=== PATIENT | female | born 1940 | race Caucasian/White ===

== ENCOUNTER 2017-01-27 19:34 | Inpatient (IN) | payer BC ==
--- NOTE | ~2017-01-27 | HP ---
History And Physical [facility] [address] [place]. [address] NAME: SANTA ALMAZAN : 42 STATUS : ADM IN PAT#: [id number] AGE: 76 ADM/REG DATE : 01/27/17 MR#: [id number] REPORT SERV DATE: 01/28/17 DICTATED BY: FAHEEM BAUTISTA DATE: 01/27/17 REPORT STATUS : Draft TRANSCRIBED BY: MODRaysa DATE: 01/27/17 DATE OF ADMISSION: 01/27/2017 CHIEF COMPLAINT: Confusion. HISTORY OF PRESENT ILLNESS: This is a 76-year-old female with past medical history of recent CVA in the right thalamus in December 2016. Also, a history of a left subclavian artery stenosis, being followed by Vascular Surgery; history of encephalopathy; and AVN in the past. Recently, discharged from the hospital in December 2016, seen at that time by Dr. Wilson. The patient presents back to [facility] ER for worsening encephalopathy and according to family, some signs of left-sided weakness. According to the family, who is the son and [id number], the patient developed some confusion on Thursday, approximately 5 days ago, and also family noticed that it was hard for the patient to hold things in her left hand including her walker. EMS was called at that time; however, the patient had refused EMS, reported per family. The patient states that she knows that she has been confused over the past few days, but she states that she is better now. The patient was seen in the ER by Dr. Vasquez for her findings, and a CT of the brain was ordered, which revealed some moderate large area of encephalomalacia in the right occipital lobe, much larger than prior MRI in December 2016, with concerns of possible acute superimposed chronic infarct; therefore, MRI of the brain was ordered by Dr. Vasquez, but findings are still pending. Also, Neurology with Dr. Jacome was consulted and informed of the patient, and he will follow up with the MRI. According to the family, the patient was taken off her Plavix approximately three weeks ago due to severe anemia with a hemoglobin of around 7. The last hemoglobin from her last discharge in December was at 11.4 and currently at 8.0. The patient has known history of AVMs. She denies any melena or hematochezia and currently has been placed on iron orally by her primary care. The patient initially refused admission, but then later consented. The patient denies any shortness of breath. No chest pain. She states that her left side is much stronger now. REVIEW OF SYSTEMS: Please refer to HPI. PAST MEDICAL HISTORY: Acute CVA of the right thalamus, encephalopathy, left subclavian artery stenoses, bipolar disorder with history psychoses, hypertension, hyperlipidemia, AVM, iron-deficiency anemia, GERD, depression, and breast cancer status post chemo and radiation. PAST SURGICAL HISTORY: Hysterectomy, bilateral breast implants, modified radical mastectomy for breast cancer, tubal ligation, back surgery, ORIF of the right shoulder, knee arthroplasty, and back surgery. FAMILY HISTORY: Hypertension and CVA. SOCIAL HISTORY: Quit tobacco abuse over 5 years ago according to the patient. No alcohol or illicit drugs. Lives at a [facility] center. Uses a walker. History And Physical [address] [address] NAME: SANTA ALMAZAN : 42 STATUS : ADM IN [facility]#: [id number] AGE: 76 ADM/REG DATE : 01/27/17 MR#: [id number] REPORT SERV DATE: 01/28/17 DICTATED BY: FAHEEM BAUTISTA DATE: 01/27/17 REPORT STATUS : Draft TRANSCRIBED BY: CAITLYN DATE: 01/27/17 HOME MEDICATIONS: Allopurinol 100 mg p.o. b.i.d.; Artificial Tears; aspirin p.o. b.i.d.; Benadryl p.r.n.; Pepcid 20 mg p.o. b.i.d.; iron polysaccharide 200 mg p.o. with breakfast and supper; Flonase 2 sprays b.i.d.; Neurontin 300 mg p.o. t.i.d. p.r.n.; Tradjenta 5 mg p.o. q.a.m.; losartan 100 mg p.o. at bedtime; multivitamin; Inderal 80 mg p.o. four times a day; Seroquel 25 mg p.o. at bedtime, however, the patient refuses to take this medication. PHYSICAL EXAMINATION: VITAL SIGNS: Temperature is 98.6, initial blood pressure was 213/93, with a pulse of 79, respiratory rate 16, saturating 99% on room air. GENERAL: Currently, the patient is alert and oriented x3. HEENT: Pupils are equal, round, and reactive to light. Extraocular muscles are intact. Moist mucous membranes. CARDIOVASCULAR: S1, S2. Regular rate and rhythm. No appreciated rubs or gallops. No JVD. NECK: Possible bruit in the right carotid or possible trajection from known left subclavian stenoses. RESPIRATORY: Clear to auscultation bilaterally. No wheezes or crackles. ABDOMEN: Positive bowel sounds. Soft, nontender. No rebound. No fluid wave. No distention. EXTREMITIES: 2+ pulses bilaterally. NEURO: Cranial nerves II through XII grossly intact. 4/5 upper and lower strength bilaterally. No appreciated deficit currently. No drift. SKIN: No appreciated new rashes. LABORATORY DATA: Sodium 140, potassium 3.6, chloride of 103, bicarbonate of 23, BUN of 24, creatinine of 1.09, with a glucose of 210, calcium of 8.9, albumin of 3.2, total bilirubin of 0.2, alkaline phosphatase of 103, ALT of 24, AST of 16, troponin less than 0.02. White count of 10 with a hemoglobin of 8.0, platelet count 591. INR of 1. EKG: Normal sinus rhythm, no ST elevation. IMAGING: CT of the brain without contrast with a moderate large area of encephalomalacia with medial right occipital lobe with effacement of overlying sulci much larger than on prior MRI of December 2016 of indeterminate age. May represent acute superimposed on chronic infarct. Very small 2-mm old infarct in the right thalamus. Chronic right sphenoid sinus disease. Chest x-ray: No acute infiltrate per my interpretation. ASSESSMENT AND PLAN: 1. Acute recurrent cerebrovascular accident. 2. Hypertensive urgency. 3. Encephalopathy. 4. Anemia with history of iron deficiency anemia/arteriovenous malformations. 5. History of peripheral vascular disease. The patient will be admitted to Dr. Joyce. Dr. Jacome, the neurologist, already has been contacted and consulted through the ER and he is aware of the patient, will follow up with History And Physical [address] [address] NAME: SANTA ALMAZAN : 42 STATUS : ADM IN [facility]#: [id number] AGE: 76 ADM/REG DATE : 01/27/17 MR#: [id number] REPORT SERV DATE: 01/28/17 DICTATED BY: FAHEEM BAUTISTA DATE: 01/27/17 REPORT STATUS : Draft TRANSCRIBED BY: CAITLYN DATE: 01/27/17 the MRI, awaiting pending results. Considering the patient's findings occurred 5 days ago, the patient is out of tPA window. Also, due to the patient's anemia, we will check a stool Hemoccult. She has known AVMs, not a candidate for Plavix at this time due to worsening anemia secondary to history of AVMs. We will follow up with a fasting lipid panel as well as Neurology assessment with neuro checks, and also we will await Neurology evaluation and further recommendations. [facility]/CAITLYN Faheem Bautista M.D. / [id number] CC: Jia Davis D.O. Abdul M.W. Eletr, M.D.
--- NOTE | ~2017-01-27 | DS ---
Discharge Summary [facility] [address] [place]. [address] NAME: SANTA ALMAZAN : 42 STATUS : DIS IN PAT#: [id number] AGE: 76 ADM/REG DATE : 01/27/17 MR#: [id number] REPORT SERV DATE: 02/06/17 DICTATED BY: SHAZIA MAGANA DATE: 02/05/17 REPORT STATUS : Draft TRANSCRIBED BY: MODL DATE: 02/05/17 ADMISSION DATE: 01/27/2017 DISCHARGE DATE: 02/05/2017 CONSULTANTS: Dr. Becerril, Neurology; Dr. Feliciano Muniz, GI. DISCHARGE DIAGNOSES: 1. Acute ischemic stroke, right occipital and right temporal. 2. Recent acute ischemic stroke, right occipital and right thalamus, December 2016. 3. 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 4. Acute fungal esophagitis. 5. Acute blood loss anemia. 6. Bipolar disorder with previous psychosis and insomnia. 7. Hypertension. 8. History of breast cancer, resected in 1978. 9. Stage 3 chronic kidney disease. 10.Diabetes mellitus type 2 with A1c 7.4%. 11.History of previous hepatitis. 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 HISTORY: This patient had been hospitalized here 12/11/2016 through 12/16/2016 with an acute ischemic stroke involving the right occipital and right thalamic area. She, at that time, was found to have some subclavian artery stenosis and talked to Dr. David Galindo of Vascular, saw her and felt she had no symptoms from it and he would follow up as an outpatient. At that time, she was also seen by Dr. Jg Andrews of Psychiatry and he felt she had bipolar disorder type 2 and stopped her Prozac and added Seroquel and recommended longitudinal followup with Psychiatry as an outpatient. The patient presented to the emergency room at [facility] with confusion according the family, some worsening of left-sided weakness where it was difficult for her to hold things in her left hand and difficulty use her walker. The patient underwent imaging in the emergency room including CT scan of the brain without contrast, which revealed moderately large area of encephalomalacia medial right occipital lobe much larger than the infarct on the prior MRI of 12/12/2016, very small 2 mm old right thalamic infarct, mild atrophy and moderate deep white matter changes and chronic right sphenoid sinus disease. MRI of the brain in the ER revealed moderately large acute ischemic infarct including a large portion of the inferior vascular distribution of the right posterior cerebral artery including the right medial temporal lobe, medial right occipital lobe, but sparing the more superior portion of the right occipital lobe. The area of acute infarct showed marked progression from the small area of acute infarct 12/12/2016. There were subtle areas of persistent minor cortical hemorrhagic change of the inferior right occipital lobe. There was also suspected acute progression of previously small acute right thalamic stroke, previously 2.2 to 3 mm, now 7 mm, in a pattern consistent with acute ischemic infarct. She was referred to our team for inpatient care and the on-call neurologist, Dr. Louise Ridley [address] [address] NAME: SANTA ALMAZAN : 42 STATUS : DIS IN PAT#: [id number] AGE: 76 ADM/REG DATE : 01/27/17 MR#: [id number] REPORT SERV DATE: 02/06/17 DICTATED BY: SHAZIA MAGANA DATE: 02/05/17 REPORT STATUS : Draft TRANSCRIBED BY: CAITLYN DATE: 02/05/17 Naa, reportedly was involved and evaluating the patient initially. As part of the history obtained on admission included that the patient, per her family, had stopped taking with her Plavix because of anemia with hemoglobin around 7 whereas her previous hemoglobin was around 11.4. She was evaluated for this during this current hospitalization as well. Neurology, Dr. Becerril, and nurse practitioner, Nargis Granados, consulted and recommended that the patient no longer drive because she has a significant left-sided homonymous hemianopsia. They recommended that she be on aspirin and be on Plavix and Lipitor. Because of her significant drop in her hemoglobin, she was seen by GI, Dr. Muniz, and during this hospitalization, it was recommended for EGD and colonoscopy. Initially, she was reluctant to take the preparation and this delayed her endoscopy evaluations considerably, but finally, she agreed to it. On 02/03/2017, she had an EGD showing esophageal candidiasis in the upper third of the esophagus. Brushings and yeast. She had two small AVMs bleeding in the second portion, they were treated with argon argon plasma laser. Small hiatal hernia was noted. She underwent colonoscopy on the same day showing four nonbleeding AV malformations, treated with fulguration, two polyps in the cecum, one in the ascending colon, and one in the transverse colon removed. Pathology revealed them to be fragments of tubular adenoma without high-grade dysplasia. The patient did have the evidence of the acute blood loss. Her hemoglobins here remained stable, and at discharge, her hemoglobin is 8. Her iron studies do reveal a low serum iron of 20, low percent iron saturation of 6, ferritin of 29, which is low considering the inflammatory states she is going through. Her folic acid level on 01/29/2017 was normal at 28.4, as was her B12 on 01/29/2017 at 779. The patient is tolerating oral iron. And she knows that her stools will turn dark color with this. She has been assessed by Physical therapy, Occupational therapy, and she is felt to need inpatient rehab. Case Management has been working with the patient and her family in this regard and those plans are hopefully completed today. The patient has been very cooperative through her time here. She is sleeping well. She works with therapy. She is cooperative with the staff. For her Naomi esophagitis, she will be on Diflucan for three weeks and HIV titer pending at this time. It is unlikely to be positive, but this should be followed up. GI felt that she should have her aspirin and Plavix held for a minimum of three days after her polypectomy and fulguration of her AV malformations. DISCHARGE MEDICATIONS: Will include, allopurinol 100 mg b.i.d., Lipitor 80 mg daily, BuSpar 5 mg b.i.d. which is new, vitamin D 5000 units daily which is new because her vitamin D level was 27, EzFe 200 mg b.i.d., Diflucan 100 mg daily through 02/24/2017, Flonase nasal spray two puffs each nostril twice a day, NovoLog level 1 insulin before meals and h.s., Cozaar 100 mg daily (at discharge, her creatinine is normal at 1.25), multivitamin once a Discharge Summary [facility] [place] [address] [place]. [address] NAME: SANTA ALMAZAN : 44 STATUS : DIS IN [facility]#: [id number] AGE: 76 ADM/REG DATE : 01/27/17 MR#: [id number] REPORT SERV DATE: 02/06/17 DICTATED BY: SHAZIA MAGANA DATE: 02/05/17 REPORT STATUS : Draft TRANSCRIBED BY: CAITLYN DATE: 02/05/17 day, Protonix 40 mg b.i.d., Inderal 80 mg q.i.d. which is a chronic medicine, Seroquel 25 mg q.h.s. which she has been on since Dr. Andrews started it at the time of his consultation on 12/16/2016, Levemir 18 units at bedtime, Tylenol 650 q.4 hours p.r.n. mild pain, Refresh Tears p.r.n., Benadryl 25 mg at bedtime p.r.n. itching or insomnia, gabapentin 300 mg t.i.d. p.r.n. leg spasms which is a chronic medicine for her, glucose tablets p.r.n., melatonin 3 mg at bedtime p.r.n. insomnia, tramadol 50 mg half tablet every six hours p.r.n. moderate pain #10 prescribed, Cogentin 5 mg with breakfast, artificial tears p.r.n., aspirin 81 mg daily to restart on 02/07/2017, Plavix 75 mg daily to begin on 02/07/2017. I spent 39 minutes today with the patient and with discharge planning. PATRICIA/CAITLYN Shazia Magana M.D. / [id number] CC: Jia Garcia D.O. Charles Scott Joels, M.D. Colleen Schmitt, M.D. Abdul M.W. Eletr, M.D. [facility]
--- NOTE | ~2017-01-27 | IDS ---
Interim Discharge Summary [facility] [address] [place]. [address] NAME: SANTA ALMAZAN : 44 STATUS : ADM IN PAT#: [id number] AGE: 76 ADM/REG DATE : 01/27/17 MR#: [id number] REPORT SERV DATE: 02/02/17 DICTATED BY: JESSICA KAUFMAN DATE: 02/02/17 REPORT STATUS : Draft TRANSCRIBED BY: MODL DATE: 02/02/17 ADMISSION DATE: 01/27/2017 DISCHARGE DATE: The date that I am signing this patient out to my colleague is 02/02/2017. INTERIM DIAGNOSES: So far the diagnoses on this patient include multiple recurrent strokes because of noncompliance with aspirin, Plavix, and Lipitor-recent right thalamic stroke that left the patient with left arm weakness-now during this admission, the patient has again suffered another right SCREENING TECHNICIAN territory stroke which has left her with hemianopsia, and the left-sided weakness continues. Other diagnoses that are stable and chronic include the followin. History of left subclavian stenosis. 2. History of bipolar disorder with psychosis. 3. 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 4. Hypertension, hyperlipidemia. 5. Chronic intermittent GI bleed from arteriovenous malformations in the colon. 6. History of depression and previous history of breast cancer and gout which are stable. CONSULTATIONS OBTAINED DURING THIS HOSPITALIZATION: Include: 1. Neurology consult for the repeat strokes and now another acute right SCREENING TECHNICIAN territory stroke. 2. Gastroenterology consult for the ongoing GI bleed which has come back with stool Hemoccult positive from chronic intermittent leak from AVM in the colon. The patient actually needs both an upper and lower endoscopy which she has finally agreed to have. BRIEF HOSPITAL COURSE: During the time that I took care of this patient include the following: The patient is a 76-year-old female patient, who was admitted with signs and symptoms as outlined in history and physical exam. Essentially, she was admitted for another recurrent stroke. Neurology was consulted. CTA of the brain showed an acute right SCREENING TECHNICIAN territory stroke at this time. The patient has already suffered a thalamic stroke in the recent past. Neurology recommended restarting aspirin, Plavix, and statin and supportive care with PT OT and rehab but in the meantime, the patient's hemoglobin and hematocrit were found to be extremely low. Her hemoglobin was down to less than 7 at one point, and hence she was given blood transfusion. This is because the patient has chronic leak from an AVM that she has in the colon. Hence, the patient suffers from chronic intermittent GI bleed from the AV malformation in the colon itself. Even though stool occult blood was negative during this admission, she is positive intermittently because of the intermittent leak. GI has been consulted, and Dr. Muniz saw the patient. The patient has been going back and forth regarding giving permission for upper and lower endoscopy which she needs at this time. The patient states that she cannot take the prep and has a lot of nausea and vomiting and throws it back up and hence had refused prep until 02/02/2017 saying she was not interested in any endoscopy procedures and just wanted to go to a rehab. However, on 02/02/2017, her family and she have changed her mind, and they are willing to go through the prep and get an upper and lower endoscopy at this time. Hence, I am re- Interim Discharge Summary [address] [place]. [address] NAME: SANTA ALMAZAN : 44 STATUS : ADM IN PAT#: [id number] AGE: 76 ADM/REG DATE : 01/27/17 MR#: [id number] REPORT SERV DATE: 02/02/17 DICTATED BY: JESSICA KAUFMAN DATE: 02/02/17 REPORT STATUS : Draft TRANSCRIBED BY: MODL DATE: 02/02/17 consulting GI so this patient could get her upper endoscopy or EGD and also colonoscopy which are I guess needed at this point, according to GI note. So, the patient is waiting on GI consult and endoscopy so far. My colleague will be taking over care of this patient on 02/03/2017. RRA/MODL Jessica Kaufman M.D. / [id number] CC: Jia Davis D.O.
--- NOTE | ~2017-01-27 | EGD ---
EGD REPORT [facility] [address] [address] NAME: SANTA CASTELLANO : 44 STATUS : ADM IN PAT#: [id number] AGE: 76 ADM/REG DATE : 01/27/17 MR#: [id number] REPORT SERV DATE: 02/03/17 DICTATED BY: FELICIANO BRIGGS DATE: 02/03/17 REPORT STATUS : Draft TRANSCRIBED BY: [facility] DATE: 02/03/17 Endoscopy Center Patient Name: Santa Castellano Date of : 1940 Attending MD: FELICIANO BRIGGS MD Procedure Date No Time: 02/03/2017 Procedure: Colonoscopy Indications: Iron deficiency anemia Referring MD: CARRILLO KHAN MD Medicines: Monitored Anesthesia Care Complications: No immediate complications. Estimated blood loss: Minimal. Procedure: Pre-Anesthesia Assessment: - ASA Grade Assessment: IV - A patient with severe systemic disease that is a constant threat to life. After I obtained informed consent, the scope was passed under direct vision. Throughout the procedure, the patient's blood pressure, pulse, and oxygen saturations were monitored continuously. The CF [id number] was introduced through the anus and advanced to the cecum, identified by appendiceal orifice and ileocecal valve. The colonoscopy was performed without difficulty. The patient tolerated the procedure well. The quality of the bowel preparation was fair and not adequate to identify polyps 6 mm and larger in size. Findings: The perianal and digital rectal examinations were normal. Pertinent negatives include normal sphincter tone and no palpable rectal lesions. Four small angiodysplastic lesions without bleeding were found in the ascending colon and in the cecum. Fulguration to ablate the lesion to prevent bleeding by argon plasma at 0.8 liters/minute and 20 galvin was successful. Estimated blood loss was minimal. A semi-sessile polyp was found in the cecum. The polyp was 5 mm in size. The polyp was removed with a cold biopsy forceps. Resection and retrieval were complete. Estimated blood loss was minimal. A semi-sessile polyp was found in the cecum. The polyp was 7 mm in size. The polyp was removed with a cold snare. Resection and retrieval were complete. Estimated blood loss was minimal. A semi-sessile polyp was found in the ascending colon. The polyp was 9 mm in size. The polyp was removed with a cold snare. Resection and retrieval were complete. Estimated blood loss was minimal. A semi-sessile polyp was found in the transverse colon. The polyp was 6 mm in size. The polyp was removed with a cold snare. Resection and retrieval were complete. Estimated blood loss was minimal. EGD REPORT [address] [address] NAME: SANTA CASTELLANO : 44 STATUS : ADM IN [facility]#: [id number] AGE: 76 ADM/REG DATE : 01/27/17 MR#: [id number] REPORT SERV DATE: 02/03/17 DICTATED BY: FELICIANO BRIGGS DATE: 02/03/17 REPORT STATUS : Draft TRANSCRIBED BY: [employer] DATE: 02/03/17 A moderate amount of semi-liquid stool was found in the entire colon, making visualization difficult. The exam was otherwise without abnormality. Impression: - Four non-bleeding colonic angiodysplastic lesions. Treated by fulguration. - One 5 mm polyp in the cecum. Resected and retrieved. - One 7 mm polyp in the cecum. Resected and retrieved. - One 9 mm polyp in the ascending colon. Resected and retrieved. - One 6 mm polyp in the transverse colon. Resected and retrieved. - Stool in the entire examined colon. - The examination was otherwise normal. Recommendation: - Return patient to hospital [facility] for ongoing care. - Await pathology results. - Repeat colonoscopy in 6 months because the bowel preparation was poor. Procedure Code(s): --- Professional --- 89338, 59, Colonoscopy, flexible, proximal to splenic flexure; with control of bleeding (eg, injection, bipolar cautery, unipolar cautery, laser, heater probe, stapler, plasma auto haulaway driver) 76030, Colonoscopy, flexible, proximal to splenic flexure; with removal of tumor(s), polyp(s), or other lesion(s) by snare technique 16046, 59, Colonoscopy, flexible, proximal to splenic flexure; with biopsy, single or multiple Diagnosis Code(s): --- Professional --- K55.20, Angiodysplasia of colon without hemorrhage D12.3, Benign neoplasm of transverse colon D12.2, Benign neoplasm of ascending colon D12.0, Benign neoplasm of cecum D50.9, Iron deficiency anemia, unspecified CPT copyright 2013 [employer]. All rights reserved. The codes documented in this report are preliminary and upon stick puller review may be revised to meet current compliance requirements. Feliciano Briggs MD FELICIANO BRIGGS MD EGD REPORT [address] [place]. [address] NAME: SANTA CASTELLANO : 44 STATUS : ADM IN [facility]#: [id number] AGE: 76 ADM/REG DATE : 01/27/17 MR#: [id number] REPORT SERV DATE: 02/03/17 DICTATED BY: FELICIANO BRIGGS DATE: 02/03/17 REPORT STATUS : Draft TRANSCRIBED BY: [employer] DATE: 02/03/17 02/03/2017 9:12 AM This report has been signed electronically. Number of Addenda: 0 Note Initiated On: 02/03/2017 7:53 AM Scope Withdrawal Time 0 hours 19 minutes [address] [place], [place] [address] [address]
--- NOTE | ~2017-01-27 | CN ---
Consultation Report [facility] [address] [place]. [address] NAME: SANTA ALMAZAN : 44 STATUS : ADM IN PAT#: [id number] AGE: 76 ADM/REG DATE : 01/27/17 MR#: [id number] REPORT SERV DATE: 01/28/17 DICTATED BY: NARGIS HENDERSON DATE: 01/28/17 REPORT STATUS : Draft TRANSCRIBED BY: CAITLYN DATE: 01/28/17 NEUROLOGY CONSULTATION DATE OF CONSULTATION: 01/28/2017 HOSPITALIST: Vivi Joyce M.D. REASON FOR CONSULTATION: Acute stroke. HISTORY OF PRESENT ILLNESS: The patient is a 76-year-old female, who was hospitalized back in 12/2016 for a right thalamic stroke. The patient was sent home on aspirin, Plavix, and Lipitor. According to her son, she is not compliant with her medications. She lives at home alone in an apartment and her house is usually in disarray. She gets her medicines mixed up and recently took two Seroquel at one time. It made her extremely drowsy and then she refused to take it after that. On Thursday, the patient developed left-sided weakness and confusion. The son called the EMS, but she refused to go. By Thursday, her speech was slurred. She developed some visual changes and again had left-sided weakness. She was finally brought to the emergency department yesterday for further evaluation and treatment. Suspecting that she had stroke, the patient was admitted. When questioned more extensively, one of the sons mentioned that the patient was severely anemic, her hemoglobin was down to 7.0. Because of her anemia, she was taken off her Plavix. She was not always compliant with taking her aspirin and Lipitor. PAST MEDICAL HISTORY: Right thalamic stroke, previous strokes, acute encephalopathy, left subclavian stenosis, bipolar disorder with psychosis, hypertension, hyperlipidemia, GIAVMs, iron-deficiency anemia, GERD, depression, breast cancer (radiation and chemotherapy), and gout. PAST SURGICAL HISTORY: Total abdominal hysterectomy, breast implants , radical mastectomy, tubal ligation, back surgery, right ORIF of the shoulder, and knee arthroplasty. HOME MEDICATION LIST: Consisted of Zyloprim 100 mg b.i.d., aspirin 81 mg half a tablet twice a day, Benadryl 25 to 50 mg p.r.n. at bedtime for sleep, Pepcid 20 mg a.c. and h.s., iron tablets 200 mg a.c. and h.s., Flonase nasal spray, Neurontin 300 mg t.i.d. for leg spasms, Tradjenta 5 mg with breakfast, Cozaar 100 mg at bedtime, multivitamin q. day, Inderal 80 mg four times a day, and Seroquel 25 mg at bedtime. ALLERGIES: INCLUDES PENICILLIN, TRAZODONE, AMBIEN, AND CLINDAMYCIN. SOCIAL HISTORY: The patient is . She lives alone. She has two sons. She does not smoke, drink alcohol, or use recreational drugs. FAMILY HISTORY: The patient's mother at the age 83 from congestive heart failure. Her Consultation Report [address] [place]. [address] NAME: SANTA ALMAZAN : 44 STATUS : ADM IN [facility]#: [id number] AGE: 76 ADM/REG DATE : 01/27/17 MR#: [id number] REPORT SERV DATE: 01/28/17 DICTATED BY: NARGIS HENDERSON DATE: 01/28/17 REPORT STATUS : Draft TRANSCRIBED BY: CAITLYN DATE: 01/28/17 dad at 76 from a stroke and dementia. Siblings; she has two sisters, one from cancer. REVIEW OF SYSTEMS: For pertinent positives, please see HPI. PHYSICAL EXAMINATION: GENERAL: The patient is a 76-year-old female, who stands 5 feet 5 inches tall and weighs 175 pounds. She is afebrile. VITAL SIGNS: Heart rate 73, respiratory rate 17, O2 saturations on room air 98%, and blood pressure 165/70. NEUROLOGIC: The patient is alert. She is oriented to person and place, not necessarily time. She is oriented to situation,but she is agitated at times. PSYCHOTIC: She is very restless. She will follow simple commands. Speech is slightly dysarthric. She does have a facial droop on the left side. Tongue deviates to the left slightly. Pupils are 4 mm. PERRLA. Cranial nerves 2 through 12 are intact except she does have complete right homogeneous hemianopia. No sensory deficits. She can move all extremities x4. She does have a significant pronator drift on the left. No asterixis. No ataxia with [id number]. Upper extremities, strength is 4/5 on the right and 3/5 on the left. Upper DTRs 1+ bilaterally. No reported sensory deficits. Lower extremities, strength is 4/5 on the left and 3/5 on the right. DTRs 1+ bilaterally. Plantar reflexes are silent. NECK: There is a carotid bruit heard in the left, especially over the subclavian region. No JVD or thyromegaly. CHEST: Lung sounds clear. CARDIAC: Regular rate and rhythm. LABORATORY DATA: CBC: Normal except the platelet count is 600. BMP relatively normal, glucose is 171. Cholesterol values are mildly elevated. Triglycerides 352. A1c 7.4. Chest x-ray: No acute changes. MRI of the brain shows acute stroke in the right SEAT NAILER territory. No midline shift. No evidence of hemorrhage. NIH stroke scale is a 7. ASSESSMENT/PLAN: 1. Acute stroke in the right SEAT NAILER territory. The patient will undergo a CTA of the head and neck, echocardiogram with bubble study, PT, OT, and Speech therapy will be consulted. Case Management will be consulted for rehabilitation and also placement issues. The patient is not safe to be living by herself. She is also not safe to drive. The patient will resume aspirin 81 mg p.o. daily and Plavix 75 mg daily. She will also continue on Lipitor 80 mg daily. 2. Acute encephalopathy, most likely secondary to stroke. 3. Probable vascular dementia. 4. Gastrointestinal arteriovenous malformations and anemia. GI will be consulted. Consultation Report [address] [place]. [address] NAME: SANTA ALMAZAN : 44 STATUS : ADM IN [facility]#: [id number] AGE: 76 ADM/REG DATE : 01/27/17 MR#: [id number] REPORT SERV DATE: 01/28/17 DICTATED BY: NARGIS HENDERSON DATE: 01/28/17 REPORT STATUS : Draft TRANSCRIBED BY: CAITLYN DATE: 01/28/17 5. Noncompliance. 6. Thrombocytosis. Thank you again for including us in consultation. We will continue to follow with you. RONAK/CAITLYN Nargis Henderson, [facility]- / [id number] CC: Jia Davis D.O.
--- NOTE | ~2017-01-27 | CN ---
Consultation Report [place] [id number] [facility] [place]. [address] NAME: SANTA CASTELLANO : 44 STATUS : ADM IN PAT#: [id number] AGE: 76 ADM/REG DATE : 01/27/17 MR#: [id number] REPORT SERV DATE: 01/31/17 DICTATED BY: FELICIANO BRIGGS DATE: 01/30/17 REPORT STATUS : Draft TRANSCRIBED BY: MODL DATE: 01/30/17 INPATIENT CONSULT NOTE DATE OF CONSULTATION: 01/30/2017 REASON FOR CONSULTATION: Anemia. HISTORY OF PRESENT ILLNESS: Ms Castellano is a very pleasant 76-year-old female with a past medical history most significant for chronic iron deficiency anemia and known AVMs of the GI tract, who was admitted for confusion after a recent stroke in December 2016. After her recent stroke, the patient was started on aspirin and Plavix. Upon admittance to the hospital, on this admission, her hemoglobin was noted to be 7 with her prior hemoglobin in December of 2016 at 11.4 on discharge. The patient takes iron orally which is prescribed by her primary care. Her previous molded goods operator, Dr. Gonzalez Marx, had performed endoscopy in 2007 by report, although no record of this is available at this time where she was found to reportedly have AVMs. No endoscopic evaluation since that time. Discussed the patient's anemia with her and possible evaluation. The patient states that she would prefer not to undergo endoscopic evaluation at this time. During her hospitalization, she has had no overt signs of GI bleeding. The patient also had her stool tested for microscopic amounts of blood and was found to be Hemoccult negative. REVIEW OF SYSTEMS: All systems were reviewed and were negative aside from what was mentioned in history of present illness. PAST MEDICAL HISTORY: Includes, 1. Recent stroke of the right thalamus. 2. Left subclavian artery stenosis. 3. Bipolar disorder. 4. Hypertension. 5. Hyperlipidemia. 6. GI tract AVMs. 7. Chronic iron-deficiency anemia. 8. GERD. 9. Depression. 10.Breast cancer, status post chemotherapy and radiation. 11.Status post hysterectomy. 12.Status post tubal ligation. 13.Status post prior back surgery. FAMILY HISTORY: The patient has a family history of cardiovascular disease, but no GI related malignancy. SOCIAL HISTORY: The patient is a prior smoker, but quit approximately five years ago. No Consultation Report [address] [place]. [address] NAME: SANTA CASTELLANO : 44 STATUS : ADM IN PAT#: [id number] AGE: 76 ADM/REG DATE : 01/27/17 MR#: [id number] REPORT SERV DATE: 01/31/17 DICTATED BY: FELICIANO BRIGGS DATE: 01/30/17 REPORT STATUS : Draft TRANSCRIBED BY: MODL DATE: 01/30/17 alcohol or illicit substance use. ALLERGIES: THE PATIENT HAS DRUG ALLERGIES TO: 1. AMBIEN. 2. PENICILLIN. 3. CLINDAMYCIN. 4. TRAZODONE. OUTPATIENT MEDICATIONS: Include, 1. Pepcid. 2. Flonase. 3. Multivitamin. 4. Zyloprim. 5. Cozaar. 6. Neurontin. 7. Iron tablets. 8. Tradjenta. 9. Propranolol. 10.Seroquel. 11.Benadryl. 12.Artificial tears. 13.Aspirin 81 mg p.o. daily. (Plavix had been discontinued due to findings of anemia recently). PHYSICAL EXAMINATION: VITAL SIGNS: Temperature is 98.0, pulse rate of 85, blood pressure 137/59, saturating 98% on room air. GENERAL INSPECTION: Reveals an elderly female, lying in bed, in no apparent distress. HEENT: Head is normocephalic, atraumatic with normal inspection of the oral mucosa with moist mucous membranes. Sclerae are nonicteric. Pupils are equal and round. NECK: Supple without lymphadenopathy. HEART: Rate is regular with normal S1, S2. LUNGS: Sounds clear to auscultation bilaterally. ABDOMEN: Soft, nontender, nondistended with normoactive bowel sounds. EXTREMITIES: The patient has no cyanosis, clubbing, or edema. SKIN: The patient has no jaundice or rash. NEUROLOGIC: No gross motor deficits. She is alert and oriented. Mood and affect are appropriate. Judgment appears to be intact. LABORATORY DATA: Most recent laboratory results include CBC that demonstrated a white count of 8.1, hemoglobin of 7.4 with an MCV of 80, and a platelet count of 453,000. Basic electrolyte panel demonstrated a normal BUN of 22, creatinine of 1.2. Electrolytes were normal aside from a bicarb that was mildly decreased at 18. LFTs were normal. Consultation Report [place] [id number] [facility] [place]. [address] NAME: SANTA CASTELLANO : 44 STATUS : ADM IN PAT#: [id number] AGE: 76 ADM/REG DATE : 01/27/17 MR#: [id number] REPORT SERV DATE: 01/31/17 DICTATED BY: FELICIANO BRIGGS DATE: 01/30/17 REPORT STATUS : Draft TRANSCRIBED BY: MODL DATE: 01/30/17 The patient had occult blood checked and was found to be negative. ASSESSMENT AND PLAN: Ms Castellano is a very pleasant 76-year-old female with a past medical history of gastrointestinal arteriovenous malformations and chronic iron deficiency anemia who recently sustained a stroke and was placed on aspirin and Plavix and had a drop in her hemoglobin. The patient has had no overt gastrointestinal bleeding. The patient was found during this hospitalization to be Hemoccult negative, although Plavix was stopped previously given the new findings of anemia. The patient has been scheduled on multiple occasions for evaluation by Gastroenterology over the last several years, but has not followed through with any of the appointments. We would recommend EGD and colonoscopy for further evaluation. However, the patient states that she does not feel like performing a bowel prep at this point in time. I would prefer to defer evaluation to a later date. I would recommend that this evaluation to take place in the near future, however, they can be performed at a time that the patient is comfortable with. Thank you very much for this interesting consult. Please call us if the patient wishes to undergo endoscopic evaluation at some point during this hospitalization. Otherwise, we recommend that she follow up with Dr. Jen Luis as an outpatient. [facility]/CAITLYN Feliciano Briggs MD / [id number] CC: Jia Franz DONALD W.
--- NOTE | ~2017-01-27 | EGD ---
EGD REPORT [facility] [address] [place]. [address] NAME: SANTA CASTELLANO : 44 STATUS : ADM IN PAT#: [id number] AGE: 76 ADM/REG DATE : 01/27/17 MR#: [id number] REPORT SERV DATE: 02/03/17 DICTATED BY: FELICIANO BRIGGS DATE: 02/03/17 REPORT STATUS : Draft TRANSCRIBED BY: [facility] DATE: 02/03/17 Endoscopy Center Patient Name: Santa Castellano Date of : 1940 Attending MD: FELICIANO BRIGGS MD Procedure Date No Time: 02/03/2017 Procedure: Upper GI endoscopy Indications: Iron deficiency anemia Referring MD: CARRILLO KHAN MD Medicines: Monitored Anesthesia Care Complications: No immediate complications. Estimated blood loss: Minimal. Procedure: Pre-Anesthesia Assessment: - ASA Grade Assessment: IV - A patient with severe systemic disease that is a constant threat to life. After obtaining informed consent, the endoscope was passed under direct vision. Throughout the procedure, the patient's blood pressure, pulse, and oxygen saturations were monitored continuously. The GIF [id number] was introduced through the mouth, and advanced to the third part of duodenum. The upper GI endoscopy was accomplished without difficulty. The patient tolerated the procedure well. Findings: Diffuse candidiasis was found in the upper third of the esophagus. Cytology was performed. No gross lesions were noted in the entire examined stomach. Two small angioectasias with bleeding were found in the second part of the duodenum. Fulguration to stop the bleeding by argon plasma at 0.8 liters/minute and 20 galvin was successful. Estimated blood loss was minimal. Normal mucosa was found in the entire duodenum. Biopsies were taken with a cold forceps for evaluation of celiac disease. Estimated blood loss was minimal. A small hiatus hernia was present. The exam was otherwise without abnormality. Impression: - Monilial esophagitis. Cells for cytology obtained. 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 Treated by fulguration. - Normal mucosa was found in the entire examined duodenum. Biopsied. - Hiatus hernia. - The examination was otherwise normal. EGD REPORT [address] [address] NAME: SANTA CASTELLANO : 44 STATUS : ADM IN [facility]#: [id number] AGE: 76 ADM/REG DATE : 01/27/17 MR#: [id number] REPORT SERV DATE: 02/03/17 DICTATED BY: FELICIANO BRIGGS DATE: 02/03/17 REPORT STATUS : Draft TRANSCRIBED BY: [employer] DATE: 02/03/17 Recommendation: - Perform a colonoscopy today. - Await pathology results. - Diflucan (fluconazole) 100 mg PO daily for 3 weeks. Procedure Code(s): --- Professional --- 90474, 59, Esophagogastroduodenoscopy, flexible, transoral; with control of bleeding, any method 13899, Esophagogastroduodenoscopy, flexible, transoral; with biopsy, single or multiple Diagnosis Code(s): --- Professional --- B37.81, Candidal esophagitis K31.811, Angiodysplasia of stomach and duodenum with bleeding K44.9, Diaphragmatic hernia without obstruction or gangrene D50.9, Iron deficiency anemia, unspecified CPT copyright 2013 [employer]. All rights reserved. The codes documented in this report are preliminary and upon display artist review may be revised to meet current compliance requirements. Feliciano Briggs MD FELICIANO BRIGGS MD 02/03/2017 9:05 AM This report has been signed electronically. Number of Addenda: 0 Note Initiated On: 02/03/2017 7:52 AM Scope Withdrawal Time 0 hours 0 minutes 0 seconds [address] [place] [id number]
[2017-01-27 17:11] LABS: BASOPHILS 0.8 %; BASOPHILS ABSOLUTE 0.08 10/3/uL (0.0-0.16); EOSINOPHILS 2.5 %; EOSINOPHILS ABSOLUTE 0.25 10/3/uL (0.0-0.53); IMMATURE GRANULOCYTES 1.6 %; IMMATURE GRANULOCYTES ABSOLUTE 0.16 10/3/uL (0.0-0.11); LYMPHOCYTES 13.5 %; LYMPHOCYTES ABSOLUTE 1.35 10/3/uL (0.67-4.30); MEAN CORPUS HGB CONC 32.4 g/dL (32.0-36.0); MEAN PLATELET VOLUME 8.8 fL (9.2-13.0); NEUTROPHILS 77.6 %; NEUTROPHILS ABSOLUTE 7.74 10/3/uL (2.02-8.40); RED CELL COUNT 3.07 10/6/uL (4.0-5.6)
[2017-01-27 17:13] LABS: ER CBC TAT 0 Hrs 11 Mins; HEMATOCRIT 24.7 % (36.0-48.0); MANUAL DIFF NO %; MEAN CORPUSCULAR HEMOGLOB 26.1 pg (26.0-34.0); MEAN CORPUSCULAR VOLUME 80.5 fL (80-100); PLATELET COUNT 591 10/3/uL (150-400); RBC DISTRIBUTION WIDTH 16.4 % (12.0-16.0)
[2017-01-27 17:22] LABS: PARTIAL THROMBO TIME 24.6 SEC (22.5-37.2); PROTIME (NOT ORD) 13.4 SEC (12.0-14.5)
[2017-01-27 17:26] LABS: A/G RATIO 0.8 (0.7-1.9); ALKALINE PHOSPHATASE 103 U/L (45-117); CALCIUM, SERUM 8.9 MG/DL (8.5-10.4); CHLORIDE, SERUM 103 MMOL/L (96-112); CO2 (CARBON DIOXIDE) 23 MMOL/L (24-34); CREATININE 1.09 MG/DL (0.55-1.02); GFR AFRICAN AMERICAN 58 ML/MIN (>=60); GFR NON AFRICAN AMERICAN 50 ML/MIN (>=60); GLOBULIN 3.9 G/DL (2.5-4.1); POTASSIUM, SERUM 3.6 MMOL/L (3.5-5.3); SGOT(AST) 16 U/L (5-40); SGPT(ALT) 24 U/L (5-65); SODIUM, SERUM 140 MMOL/L (135-148); TOTAL BILIRUBIN 0.2 MG/DL (0-1.2); TOTAL PROTEIN 7.1 G/DL (6.0-8.5); TROPONIN I <0.02 NG/ML (<0.05)
[2017-01-27 17:27] LABS: ALBUMIN 3.2 G/DL (3.5-5.0); BUN (BLOOD UREA NITROGEN) 24 MG/DL (6-23); GLUCOSE, SERUM 210 MG/DL (60-99)
[~2017-01-27 19:34] MED LIST: *UNABLE2; *UNABLE3; ALEVE220 MG PO; ALLOPURINOL PO; AMITIZA; AMITIZA24; ASAB PO; BEN25 PO; BONIVA150 MG PO; CATAPRES2 TOP; CENTRUM PO; CIP5 PO; CITRACAL PO; COZAAR100 MG PO; FAMOTIDINE PO; FISH-EPA1000 MG PO; FLONASE NAS; GABAPENTIN PO; HCTZ PO; HYDROCHLOROT25 MG PO; INDE160LA PO; INDE80 PO; LOSARTAN PO; MACROBID PO; MAXZIDE PO; MOISTURE OPH; MSCONT15 PO; MULTIPLE VIT PO; MULTIVITAMI1 PO; NAP250 PO; NASONEX NAS; NEUR300 PO; NEXIUM40 PO; NORCO1 TA1 PO; NORV10 PO; ORAMORPH SR15 MG PO; P5 PO; PCET PO; PEP20 PO; PHENTERMINE37.5 M1 PO; PRILO; PRILO PO; PRILOSEC40 MG PO; PROPRANOLOL PO; PROZAC PO; RESTORIL30 MG PO; SENOKOTS PO; SIMVASTATIN; SLOW FE160 MG PO; TEAR OPH; TRAZ100 PO; ULTRAM50 PO; Z100 PO; ZOCOR40 PO; [UNRECOGNIZED DRUG - OTHER]; [UNRECOGNIZED DRUG - OTHER] TOP
[2017-01-27] MEDS ORDERED: PEP20 PO (20:28)
[2017-01-27] MEDS ORDERED: FLONASE NAS (20:28)
[2017-01-27] MEDS ORDERED: Z100 PO (20:29)
[2017-01-27] MEDS ORDERED: MULTIVIT/MIN PO (20:29)
[2017-01-27] MEDS ORDERED: COZAAR100 MG PO (20:30)
[2017-01-27] MEDS ORDERED: NEUR300 PO (20:31)
[2017-01-27] MEDS ORDERED: EZFE 200200 MG PO (20:31)
[2017-01-27] MEDS ORDERED: TRADJENTA5 MG PO (20:31)
[2017-01-27] MEDS ORDERED: INDE80 PO (20:32)
[2017-01-27] MEDS ORDERED: SEROQUEL25 PO (20:33)
[2017-01-27] MEDS ORDERED: BEN25 PO (20:33)
[2017-01-27] MEDS ORDERED: TEARS PURE OPH (20:33)
[2017-01-27] MEDS ORDERED: ASAB PO (20:35)
[2017-01-28 06:00] LABS: BASOPHILS 0.7 %; BASOPHILS ABSOLUTE 0.08 10/3/uL (0.0-0.16); EOSINOPHILS 5.3 %; EOSINOPHILS ABSOLUTE 0.57 10/3/uL (0.0-0.53); HEMATOCRIT 25.1 % (36.0-48.0); HEMOGLOBIN 8.2 g/dL (12.0-16.0); IMMATURE GRANULOCYTES 1.7 %; IMMATURE GRANULOCYTES ABSOLUTE 0.18 10/3/uL (0.0-0.11); LYMPHOCYTES 19.9 %; LYMPHOCYTES ABSOLUTE 2.15 10/3/uL (0.67-4.30); MEAN CORPUS HGB CONC 32.7 g/dL (32.0-36.0); MEAN CORPUSCULAR HEMOGLOB 25.9 pg (26.0-34.0); MEAN CORPUSCULAR VOLUME 79.4 fL (80-100); MEAN PLATELET VOLUME 9.2 fL (9.2-13.0); MONOCYTES 5.9 %; MONOCYTES ABSOLUTE 0.64 10/3/uL (0.21-1.20); NEUTROPHILS 66.5 %; PLATELET COUNT 600 10/3/uL (150-400); RBC DISTRIBUTION WIDTH 16.4 % (12.0-16.0); RED CELL COUNT 3.16 10/6/uL (4.0-5.6); WHITE BLOOD CELLS 10.8 10/3/uL (4.5-10.5)
[2017-01-28 06:03] LABS: MANUAL DIFF NO %
[2017-01-28 06:10] LABS: INTERNATIONAL NORMAL RATI 1.1 UNITS (-); PARTIAL THROMBO TIME 27.3 SEC (22.5-37.2); PROTIME (NOT ORD) 13.8 SEC (12.0-14.5)
[2017-01-28 06:19] LABS: CHOLESTEROL 152 MG/DL (< 200); TROPONIN I <0.02 NG/ML (<0.05)
[2017-01-28 06:20] LABS: CHOL/HDL RATIO(NOT ORDER) 5.2 (0-5); CK-MB 0.9 NG/ML; CPK 41 U/L (0-200); HDL CHOLESTEROL 29 MG/DL (> 49); LDL CHOLESTEROL 53 MG/DL (< 130); NON-HDL CHOLESTEROL 123 MG/DL (< 160); TRIGLYCERIDE 352 MG/DL (< 150)
[2017-01-28 10:40] LABS: BUN (BLOOD UREA NITROGEN) 21 MG/DL (6-23); CHLORIDE, SERUM 104 MMOL/L (96-112); CO2 (CARBON DIOXIDE) 21 MMOL/L (24-34); CREATININE 1.13 MG/DL (0.55-1.02); GFR AFRICAN AMERICAN 55 ML/MIN (>=60); GFR NON AFRICAN AMERICAN 48 ML/MIN (>=60); GLUCOSE, SERUM 174 MG/DL (60-99); POTASSIUM, SERUM 3.7 MMOL/L (3.5-5.3); SODIUM, SERUM 139 MMOL/L (135-148)
[2017-01-28 13:40] LABS: CK-MB 0.8 NG/ML; CPK 41 U/L (0-200); TROPONIN I <0.02 NG/ML (<0.05)
[2017-01-28 21:12] LABS: CPK 47 U/L (0-200); TROPONIN I <0.02 NG/ML (<0.05)
[2017-01-29 06:14] LABS: BASOPHILS 0.4 %; BASOPHILS ABSOLUTE 0.04 10/3/uL (0.0-0.16); EOSINOPHILS 4.7 %; EOSINOPHILS ABSOLUTE 0.45 10/3/uL (0.0-0.53); HEMATOCRIT 24.5 % (36.0-48.0); HEMOGLOBIN 7.9 g/dL (12.0-16.0); IMMATURE GRANULOCYTES 1.6 %; IMMATURE GRANULOCYTES ABSOLUTE 0.15 10/3/uL (0.0-0.11); LYMPHOCYTES 16.9 %; LYMPHOCYTES ABSOLUTE 1.62 10/3/uL (0.67-4.30); MEAN CORPUS HGB CONC 32.2 g/dL (32.0-36.0); MEAN CORPUSCULAR HEMOGLOB 26.1 pg (26.0-34.0); MEAN CORPUSCULAR VOLUME 80.9 fL (80-100); MEAN PLATELET VOLUME 8.8 fL (9.2-13.0); MONOCYTES 5.8 %; MONOCYTES ABSOLUTE 0.56 10/3/uL (0.21-1.20); NEUTROPHILS 70.6 %; NEUTROPHILS ABSOLUTE 6.76 10/3/uL (2.02-8.40); PLATELET COUNT 545 10/3/uL (150-400); RBC DISTRIBUTION WIDTH 16.5 % (12.0-16.0); RED CELL COUNT 3.03 10/6/uL (4.0-5.6); WHITE BLOOD CELLS 9.6 10/3/uL (4.5-10.5)
[2017-01-29 06:16] LABS: MANUAL DIFF NO %
[2017-01-29 07:11] LABS: ALBUMIN 2.9 G/DL (3.5-5.0); ALKALINE PHOSPHATASE 90 U/L (45-117); BUN (BLOOD UREA NITROGEN) 23 MG/DL (6-23); CALCIUM, SERUM 8.6 MG/DL (8.5-10.4); CHLORIDE, SERUM 103 MMOL/L (96-112); CO2 (CARBON DIOXIDE) 21 MMOL/L (24-34); CREATININE 1.22 MG/DL (0.55-1.02); DIRECT BILIRUBIN < 0.1 MG/DL (0.0-0.4); FOLATE 28.4 NG/ML (>5.2); GFR AFRICAN AMERICAN 51 ML/MIN (>=60); GFR NON AFRICAN AMERICAN 44 ML/MIN (>=60); GLUCOSE, SERUM 148 MG/DL (60-99); INDIRECT BILIRUBIN(NOT ORDER) 0.1 MG/DL (0.1-0.9); POTASSIUM, SERUM 3.6 MMOL/L (3.5-5.3); SGOT(AST) 16 U/L (5-40); SGPT(ALT) 16 U/L (5-65); SODIUM, SERUM 136 MMOL/L (135-148); TOTAL BILIRUBIN 0.2 MG/DL (0-1.2); TOTAL PROTEIN 6.1 G/DL (6.0-8.5)
[2017-01-30 06:48] LABS: BUN (BLOOD UREA NITROGEN) 22 MG/DL (6-23); CALCIUM, SERUM 8.4 MG/DL (8.5-10.4); CHLORIDE, SERUM 108 MMOL/L (96-112); CO2 (CARBON DIOXIDE) 18 MMOL/L (24-34); CREATININE 1.16 MG/DL (0.55-1.02); GFR AFRICAN AMERICAN 54 ML/MIN (>=60); GFR NON AFRICAN AMERICAN 46 ML/MIN (>=60); GLUCOSE, SERUM 145 MG/DL (60-99); SODIUM, SERUM 141 MMOL/L (135-148)
[2017-01-30 06:49] LABS: POTASSIUM, SERUM 4.7 MMOL/L (3.5-5.3)
[2017-01-30 09:26] LABS: BASOPHILS 0.7 %; BASOPHILS ABSOLUTE 0.06 10/3/uL (0.0-0.16); EOSINOPHILS 5.2 %; EOSINOPHILS ABSOLUTE 0.42 10/3/uL (0.0-0.53); HEMATOCRIT 22.7 % (36.0-48.0); HEMOGLOBIN 7.4 g/dL (12.0-16.0); IMMATURE GRANULOCYTES 0.7 %; IMMATURE GRANULOCYTES ABSOLUTE 0.06 10/3/uL (0.0-0.11); LYMPHOCYTES 17.4 %; LYMPHOCYTES ABSOLUTE 1.41 10/3/uL (0.67-4.30); MEAN CORPUS HGB CONC 32.6 g/dL (32.0-36.0); MEAN CORPUSCULAR VOLUME 79.6 fL (80-100); MEAN PLATELET VOLUME 8.7 fL (9.2-13.0); MONOCYTES 5.8 %; MONOCYTES ABSOLUTE 0.47 10/3/uL (0.21-1.20); NEUTROPHILS 70.2 %; NEUTROPHILS ABSOLUTE 5.68 10/3/uL (2.02-8.40); PLATELET COUNT 453 10/3/uL (150-400); RBC DISTRIBUTION WIDTH 16.9 % (12.0-16.0); RED CELL COUNT 2.85 10/6/uL (4.0-5.6); WHITE BLOOD CELLS 8.1 10/3/uL (4.5-10.5)
[2017-01-30 09:27] LABS: MANUAL DIFF NO %
[2017-01-31 05:22] LABS: BASOPHILS ABSOLUTE 0.06 10/3/uL (0.0-0.16); EOSINOPHILS ABSOLUTE 0.44 10/3/uL (0.0-0.53); HEMATOCRIT 22.9 % (36.0-48.0); HEMOGLOBIN 7.2 g/dL (12.0-16.0); IMMATURE GRANULOCYTES 0.8 %; IMMATURE GRANULOCYTES ABSOLUTE 0.05 10/3/uL (0.0-0.11); LYMPHOCYTES 20.2 %; LYMPHOCYTES ABSOLUTE 1.27 10/3/uL (0.67-4.30); MEAN CORPUS HGB CONC 31.4 g/dL (32.0-36.0); MEAN CORPUSCULAR HEMOGLOB 25.7 pg (26.0-34.0); MEAN CORPUSCULAR VOLUME 81.8 fL (80-100); MEAN PLATELET VOLUME 8.7 fL (9.2-13.0); MONOCYTES 6.7 %; MONOCYTES ABSOLUTE 0.42 10/3/uL (0.21-1.20); NEUTROPHILS 64.3 %; NEUTROPHILS ABSOLUTE 4.06 10/3/uL (2.02-8.40); PLATELET COUNT 464 10/3/uL (150-400); RBC DISTRIBUTION WIDTH 17.1 % (12.0-16.0); WHITE BLOOD CELLS 6.3 10/3/uL (4.5-10.5)
[2017-01-31 05:23] LABS: MANUAL DIFF NO %
[2017-01-31 05:43] LABS: BUN (BLOOD UREA NITROGEN) 20 MG/DL (6-23); CALCIUM, SERUM 8.5 MG/DL (8.5-10.4); CHLORIDE, SERUM 107 MMOL/L (96-112); CREATININE 1.21 MG/DL (0.55-1.02); GFR AFRICAN AMERICAN 51 ML/MIN (>=60); GFR NON AFRICAN AMERICAN 44 ML/MIN (>=60); GLUCOSE, SERUM 148 MG/DL (60-99); POTASSIUM, SERUM 4.2 MMOL/L (3.5-5.3); SODIUM, SERUM 140 MMOL/L (135-148)
[2017-01-31 05:44] LABS: CO2 (CARBON DIOXIDE) 22 MMOL/L (24-34)
[2017-02-01 06:59] LABS: BASOPHILS 0.6 %; BASOPHILS ABSOLUTE 0.05 10/3/uL (0.0-0.16); EOSINOPHILS 5.4 %; EOSINOPHILS ABSOLUTE 0.42 10/3/uL (0.0-0.53); HEMOGLOBIN 8.4 g/dL (12.0-16.0); IMMATURE GRANULOCYTES 0.8 %; IMMATURE GRANULOCYTES ABSOLUTE 0.06 10/3/uL (0.0-0.11); LYMPHOCYTES 15.6 %; LYMPHOCYTES ABSOLUTE 1.21 10/3/uL (0.67-4.30); MEAN CORPUS HGB CONC 32.8 g/dL (32.0-36.0); MEAN CORPUSCULAR HEMOGLOB 26.8 pg (26.0-34.0); MEAN CORPUSCULAR VOLUME 81.8 fL (80-100); MONOCYTES 7.3 %; MONOCYTES ABSOLUTE 0.57 10/3/uL (0.21-1.20); NEUTROPHILS 70.3 %; NEUTROPHILS ABSOLUTE 5.45 10/3/uL (2.02-8.40); PLATELET COUNT 483 10/3/uL (150-400); RBC DISTRIBUTION WIDTH 16.9 % (12.0-16.0); RED CELL COUNT 3.13 10/6/uL (4.0-5.6); WHITE BLOOD CELLS 7.8 10/3/uL (4.5-10.5)
[2017-02-01 07:10] LABS: HEMATOCRIT 25.6 % (36.0-48.0); MANUAL DIFF NO %
[2017-02-01 07:13] LABS: CALCIUM, SERUM 8.5 MG/DL (8.5-10.4); CHLORIDE, SERUM 103 MMOL/L (96-112); CO2 (CARBON DIOXIDE) 24 MMOL/L (24-34); CREATININE 1.16 MG/DL (0.55-1.02); GFR AFRICAN AMERICAN 54 ML/MIN (>=60); GFR NON AFRICAN AMERICAN 46 ML/MIN (>=60); POTASSIUM, SERUM 4.4 MMOL/L (3.5-5.3); SODIUM, SERUM 137 MMOL/L (135-148)
[2017-02-01 07:15] LABS: BUN (BLOOD UREA NITROGEN) 16 MG/DL (6-23); GLUCOSE, SERUM 203 MG/DL (60-99)
[2017-02-02 07:14] LABS: BASOPHILS 0.9 %; BASOPHILS ABSOLUTE 0.07 10/3/uL (0.0-0.16); EOSINOPHILS 5.7 %; EOSINOPHILS ABSOLUTE 0.44 10/3/uL (0.0-0.53); HEMATOCRIT 27.6 % (36.0-48.0); IMMATURE GRANULOCYTES 0.3 %; IMMATURE GRANULOCYTES ABSOLUTE 0.02 10/3/uL (0.0-0.11); LYMPHOCYTES 17.1 %; LYMPHOCYTES ABSOLUTE 1.32 10/3/uL (0.67-4.30); MEAN CORPUS HGB CONC 32.6 g/dL (32.0-36.0); MEAN CORPUSCULAR HEMOGLOB 26.8 pg (26.0-34.0); MEAN CORPUSCULAR VOLUME 82.1 fL (80-100); MONOCYTES 7.5 %; MONOCYTES ABSOLUTE 0.58 10/3/uL (0.21-1.20); NEUTROPHILS 68.5 %; NEUTROPHILS ABSOLUTE 5.27 10/3/uL (2.02-8.40); PLATELET COUNT 465 10/3/uL (150-400); RBC DISTRIBUTION WIDTH 16.8 % (12.0-16.0); RED CELL COUNT 3.36 10/6/uL (4.0-5.6); WHITE BLOOD CELLS 7.7 10/3/uL (4.5-10.5)
[2017-02-02 07:18] LABS: MANUAL DIFF NO %
[2017-02-02 07:29] LABS: BUN (BLOOD UREA NITROGEN) 14 MG/DL (6-23); CALCIUM, SERUM 8.9 MG/DL (8.5-10.4); CHLORIDE, SERUM 105 MMOL/L (96-112); CO2 (CARBON DIOXIDE) 22 MMOL/L (24-34); CREATININE 1.26 MG/DL (0.55-1.02); GFR AFRICAN AMERICAN 49 ML/MIN (>=60); GFR NON AFRICAN AMERICAN 42 ML/MIN (>=60); GLUCOSE, SERUM 224 MG/DL (60-99); POTASSIUM, SERUM 4.2 MMOL/L (3.5-5.3); SODIUM, SERUM 139 MMOL/L (135-148)
[2017-02-03 05:57] LABS: BASOPHILS 0.6 %; BASOPHILS ABSOLUTE 0.05 10/3/uL (0.0-0.16); EOSINOPHILS 4.7 %; HEMATOCRIT 25.7 % (36.0-48.0); HEMOGLOBIN 8.3 g/dL (12.0-16.0); IMMATURE GRANULOCYTES 0.4 %; IMMATURE GRANULOCYTES ABSOLUTE 0.03 10/3/uL (0.0-0.11); LYMPHOCYTES 19.6 %; LYMPHOCYTES ABSOLUTE 1.67 10/3/uL (0.67-4.30); MEAN CORPUS HGB CONC 32.3 g/dL (32.0-36.0); MEAN CORPUSCULAR HEMOGLOB 26.7 pg (26.0-34.0); MEAN CORPUSCULAR VOLUME 82.6 fL (80-100); MEAN PLATELET VOLUME 8.8 fL (9.2-13.0); MONOCYTES ABSOLUTE 0.68 10/3/uL (0.21-1.20); NEUTROPHILS 66.7 %; NEUTROPHILS ABSOLUTE 5.69 10/3/uL (2.02-8.40); PLATELET COUNT 431 10/3/uL (150-400); RED CELL COUNT 3.11 10/6/uL (4.0-5.6); WHITE BLOOD CELLS 8.5 10/3/uL (4.5-10.5)
[2017-02-03 05:59] LABS: MANUAL DIFF NO %
[2017-02-03 06:02] LABS: INTERNATIONAL NORMAL RATI 1.1 UNITS (-); PROTIME (NOT ORD) 14.1 SEC (12.0-14.5)
[2017-02-03 06:12] LABS: BUN (BLOOD UREA NITROGEN) 14 MG/DL (6-23); CALCIUM, SERUM 8.6 MG/DL (8.5-10.4); CHLORIDE, SERUM 102 MMOL/L (96-112); CO2 (CARBON DIOXIDE) 26 MMOL/L (24-34); CREATININE 1.46 MG/DL (0.55-1.02); GFR AFRICAN AMERICAN 41 ML/MIN (>=60); GFR NON AFRICAN AMERICAN 35 ML/MIN (>=60); POTASSIUM, SERUM 4.8 MMOL/L (3.5-5.3); SODIUM, SERUM 138 MMOL/L (135-148)
[2017-02-03 06:15] LABS: GLUCOSE, SERUM 154 MG/DL (60-99)
[2017-02-04 05:29] LABS: BASOPHILS 0.8 %; BASOPHILS ABSOLUTE 0.06 10/3/uL (0.0-0.16); EOSINOPHILS 4.3 %; EOSINOPHILS ABSOLUTE 0.32 10/3/uL (0.0-0.53); HEMATOCRIT 24.9 % (36.0-48.0); HEMOGLOBIN 8.1 g/dL (12.0-16.0); IMMATURE GRANULOCYTES 0.3 %; IMMATURE GRANULOCYTES ABSOLUTE 0.02 10/3/uL (0.0-0.11); LYMPHOCYTES 16.6 %; LYMPHOCYTES ABSOLUTE 1.24 10/3/uL (0.67-4.30); MEAN CORPUS HGB CONC 32.5 g/dL (32.0-36.0); MEAN CORPUSCULAR HEMOGLOB 26.6 pg (26.0-34.0); MEAN CORPUSCULAR VOLUME 81.9 fL (80-100); MEAN PLATELET VOLUME 9.1 fL (9.2-13.0); MONOCYTES 6.2 %; MONOCYTES ABSOLUTE 0.46 10/3/uL (0.21-1.20); NEUTROPHILS 71.8 %; NEUTROPHILS ABSOLUTE 5.35 10/3/uL (2.02-8.40); PLATELET COUNT 446 10/3/uL (150-400); RBC DISTRIBUTION WIDTH 17.5 % (12.0-16.0); RED CELL COUNT 3.04 10/6/uL (4.0-5.6); WHITE BLOOD CELLS 7.5 10/3/uL (4.5-10.5)
[2017-02-04 05:34] LABS: MANUAL DIFF NO %
[2017-02-04 05:40] LABS: CALCIUM, SERUM 8.8 MG/DL (8.5-10.4); CHLORIDE, SERUM 100 MMOL/L (96-112); CO2 (CARBON DIOXIDE) 26 MMOL/L (24-34); CREATININE 1.48 MG/DL (0.55-1.02); GFR AFRICAN AMERICAN 40 ML/MIN (>=60); GFR NON AFRICAN AMERICAN 35 ML/MIN (>=60); POTASSIUM, SERUM 4.4 MMOL/L (3.5-5.3); SODIUM, SERUM 137 MMOL/L (135-148)
[2017-02-04 05:43] LABS: BUN (BLOOD UREA NITROGEN) 18 MG/DL (6-23); GLUCOSE, SERUM 239 MG/DL (60-99)
[2017-02-04 13:06] LABS: % IRON SAT 6 % (20-50); FERRITIN 29 NG/ML (8-252); IRON BINDING CAPACITY 308 MCG/DL (225-410); IRON, SERUM 20 MCG/DL (35-150)
[2017-02-05 05:16] LABS: BASOPHILS 0.9 %; BASOPHILS ABSOLUTE 0.07 10/3/uL (0.0-0.16); EOSINOPHILS 5.1 %; EOSINOPHILS ABSOLUTE 0.39 10/3/uL (0.0-0.53); HEMATOCRIT 24.3 % (36.0-48.0); IMMATURE GRANULOCYTES 0.3 %; IMMATURE GRANULOCYTES ABSOLUTE 0.02 10/3/uL (0.0-0.11); LYMPHOCYTES 20.4 %; LYMPHOCYTES ABSOLUTE 1.55 10/3/uL (0.67-4.30); MEAN CORPUS HGB CONC 32.9 g/dL (32.0-36.0); MEAN CORPUSCULAR HEMOGLOB 27.1 pg (26.0-34.0); MEAN CORPUSCULAR VOLUME 82.4 fL (80-100); MEAN PLATELET VOLUME 9.3 fL (9.2-13.0); MONOCYTES 9.6 %; MONOCYTES ABSOLUTE 0.73 10/3/uL (0.21-1.20); NEUTROPHILS 63.7 %; NEUTROPHILS ABSOLUTE 4.84 10/3/uL (2.02-8.40); PLATELET COUNT 442 10/3/uL (150-400); RBC DISTRIBUTION WIDTH 17.3 % (12.0-16.0); RED CELL COUNT 2.95 10/6/uL (4.0-5.6); WHITE BLOOD CELLS 7.6 10/3/uL (4.5-10.5)
[2017-02-05 05:19] LABS: MANUAL DIFF NO %
[2017-02-05 05:25] LABS: BUN (BLOOD UREA NITROGEN) 17 MG/DL (6-23); CHLORIDE, SERUM 105 MMOL/L (96-112); CO2 (CARBON DIOXIDE) 27 MMOL/L (24-34); CREATININE 1.25 MG/DL (0.55-1.02); GFR AFRICAN AMERICAN 49 ML/MIN (>=60); GFR NON AFRICAN AMERICAN 42 ML/MIN (>=60); GLUCOSE, SERUM 222 MG/DL (60-99); POTASSIUM, SERUM 4.3 MMOL/L (3.5-5.3); SODIUM, SERUM 141 MMOL/L (135-148)
[2017-08-01] MEDS ORDERED: Z100 PO (01:03)
[2017-08-01] MEDS ORDERED: ASAB PO (01:04)
[2017-08-01] MEDS ORDERED: LIPITOR40 PO (01:04)
[2017-08-01] MEDS ORDERED: NORV10 PO (01:04)
[2017-08-01] MEDS ORDERED: PLAVIX PO (01:05)
[2017-08-01] MEDS ORDERED: DEPAKOT500 PO (01:05)
[2017-08-01] MEDS ORDERED: D 5000 PO (01:05)
[2017-08-01] MEDS ORDERED: PROZAC PO (01:06)
[2017-08-01] MEDS ORDERED: FERROUS SULF325 M1 PO (01:06)
[2017-08-01] MEDS ORDERED: FLONASE NAS (01:07)
[2017-08-01] MEDS ORDERED: PROZ10 PO (01:07)
[2017-08-01] MEDS ORDERED: NEUR400 PO (01:08)
[2017-08-01] MEDS ORDERED: HYDROCHLOROT12.5 MG PO (01:08)
[2017-08-01] MEDS ORDERED: COZAAR100 MG PO (01:09)
[2017-08-01] MEDS ORDERED: PROTONIX PO (01:09)
[2017-08-01] MEDS ORDERED: TRADJENTA5 MG PO (01:09)
[2017-08-01] MEDS ORDERED: LEVEMFLXPN SC (01:09)
[2017-08-01] MEDS ORDERED: INDE80LA PO (01:10)
[2017-08-01] MEDS ORDERED: K500 PO (01:11)
[2017-08-01] MEDS ORDERED: ULTRAM50 PO (01:11)
== END 2017-02-05 13:00 | DRG 64 ==
LOC: ER 19:34 → 1SO 23:22
PROVIDERS: Emergency Medicine; Hospitalist; Internal Medicine; Internal Medicine Gastroenterology; Nurse Practitioner
PROC: 30233N1 Transfusion of Nonautologous Red Blood Cells into Peripheral Vein, Percutaneous Approach (ICD-10-PCS; 2017-01-31)
PROC: 0W3P8ZZ Control Bleeding in Gastrointestinal Tract, Via Natural or Artificial Opening Endoscopic (ICD-10-PCS; 2017-02-03)
PROC: 0DB98ZX Excision of Duodenum, Via Natural or Artificial Opening Endoscopic, Diagnostic (ICD-10-PCS; 2017-02-03)
PROC: 0DBH8ZX Excision of Cecum, Via Natural or Artificial Opening Endoscopic, Diagnostic (ICD-10-PCS; principal; 2017-02-03 07:30)
PROC: 0DBL8ZX Excision of Transverse Colon, Via Natural or Artificial Opening Endoscopic, Diagnostic (ICD-10-PCS; 2017-02-03 07:30)
PROC: 0DBK8ZX Excision of Ascending Colon, Via Natural or Artificial Opening Endoscopic, Diagnostic (ICD-10-PCS; 2017-02-03 07:30)
PROC: 0D5K8ZZ Destruction of Ascending Colon, Via Natural or Artificial Opening Endoscopic (ICD-10-PCS; 2017-02-03 07:30)
DX: I63.9 Cerebral infarction, unspecified (principal); G93.40 Encephalopathy, unspecified; B37.81 Candidal esophagitis; E11.22 Type 2 diabetes mellitus with diabetic chronic kidney disease; K31.811 Angiodysplasia of stomach and duodenum with bleeding; D62 Acute posthemorrhagic anemia; E11.65 Type 2 diabetes mellitus with hyperglycemia; G81.94 Hemiplegia, unspecified affecting left nondominant side; F31.81 Bipolar II disorder; N18.3 Chronic kidney disease, stage 3 (moderate); I16.0 Hypertensive urgency; I73.9 Peripheral vascular disease, unspecified; I12.9 Hypertensive chronic kidney disease with stage 1 through stage 4 chronic kidney disease, or unspecified chronic kidney disease; K44.9 Diaphragmatic hernia without obstruction or gangrene; H53.462 Homonymous bilateral field defects, left side; E78.5 Hyperlipidemia, unspecified; I70.8 Atherosclerosis of other arteries; D12.0 Benign neoplasm of cecum; D12.2 Benign neoplasm of ascending colon; D47.3 Essential (hemorrhagic) thrombocythemia; D12.3 Benign neoplasm of transverse colon; K55.20 Angiodysplasia of colon without hemorrhage; F01.50 Vascular dementia, unspecified severity, without behavioral disturbance, psychotic disturbance, mood disturbance, and anxiety; K20.9 Esophagitis, unspecified; Z91.14 Patient's other noncompliance with medication regimen; Z87.891 Personal history of nicotine dependence; Z79.82 Long term (current) use of aspirin; Z79.84 Long term (current) use of oral hypoglycemic drugs; Z79.899 Other long term (current) drug therapy; Z85.3 Personal history of malignant neoplasm of breast; Z86.73 Personal history of transient ischemic attack (TIA), and cerebral infarction without residual deficits; Z90.13 Acquired absence of bilateral breasts and nipples; Z88.0 Allergy status to penicillin; Z88.5 Allergy status to narcotic agent; Z88.1 Allergy status to other antibiotic agents; Z88.8 Allergy status to other drugs, medicaments and biological substances
CPT/HCPCS: 36415; 70450; 70496; 70498; 70551; 71020; 80048; 80053; 80061; 80076; 82140; 82272; 82306; 82533; 82550; 82553; 82607; 82728; 82746; 82962; 83036; 83540; 83550; 83735; 84484; 85025; 85610; 85730; 86850; 86900; 86901; 86920; 87210; 87389; 87493; 87493-59; 88305; 92523-GN; 93005; 93308; 93325; 97110-GO; 97110-GP; 97116-GP; 97162-GP; 97166-GO; 97535-GO; 99291; A9270-GY; C9113; J0360; J2405; J3486; P9016; Q9967